=== PATIENT | male | born 1960 | race Caucasian/White ===

== ENCOUNTER 2018-06-24 03:32 | Emergency (ER) | payer OTHER ==
--- NOTE | 2018-06-24 04:12 | EDM.PDOC ---
ED HPI GENERAL MEDICAL PROBLEM - General Chief Complaint: Cardiovascular Problem Stated Complaint: CHEST DISCOMFORT / PASSED OUT Time Seen by Provider: 06/24/18 03:55 Source of Information: Reports: Patient, Family History Limitations: Reports: No Limitations - History of Present Illness INITIAL COMMENTS - FREE TEXT/NARRATIVE: 57-year-old male who developed burning in his chest, substernal, short of breath and dizziness. He got up from bed and passed out. He still feels nauseous and continues to have burning in his chest. He has a history of an [place] 10 years ago. Yesterday he was started on a weight loss medication. He is a nonsmoker. The pain does not radiate. He took a full dose aspirin at home. No recent illness, fever or chills or cough. No history of abdominal surgeries. Onset: Sudden Duration: Hour(s): (1 hour ago) Location: Reports: Chest Severity: Moderate Improves with: Reports: None Worsens with: Reports: None Context: Reports: Other (Pain started while at rest) Associated Symptoms: Reports: Chest Pain, Nausea/Vomiting, Shortness of Breath - Related Data Allergies Allergy/AdvReac Type Severity Reaction Status Date / Time No Known Allergies Allergy Verified 06/24/18 03:36 Home Meds: Home Meds Citalopram [Citalopram HBr] 20 mg PO DAILY 06/24/18 [History] Dapagliflozin Propanediol [Farxiga] 5 mg PO DAILY 06/24/18 [History] Metoprolol Succinate [Kapspargo Sprinkle] 50 mg PO DAILY 06/24/18 [History] Pramipexole [Mirapex] 1 mg PO DAILY 06/24/18 [History] Rosuvastatin Calcium 20 mg PO DAILY 06/24/18 [History] glipiZIDE [Glucotrol XL] 5 mg PO DAILY 06/24/18 [History] metFORMIN HCl [Metformin HCl] 1,000 mg PO DAILY 06/24/18 [History] Past Medical History Cardiovascular History: Reports: High Cholesterol, Hypertension, Stents Respiratory History: Reports: Sleep Apnea Genitourinary History: Reports: Renal Calculus Endocrine/Metabolic History: Reports: Diabetes, Type II - Past Surgical History Cardiovascular Surgical History: Reports: Coronary Artery Stent Social & Family History - Tobacco Use Smoking Status *Q: Never Smoker - Caffeine Use Caffeine Use: Reports: Coffee - Recreational Drug Use Recreational Drug Use: No ED ROS GENERAL - Review of Systems Review Of Systems: See Below Constitutional: Reports: Malaise. Denies: Fever, Chills HEENT: Reports: No Symptoms Respiratory: Reports: Shortness of Breath. Denies: Pleuritic Chest Pain, Cough Cardiovascular: Reports: Chest Pain. Denies: Palpitations GI/Abdominal: Reports: Abdominal Pain (In the epigastric area and substernal area only), Nausea. Denies: Vomiting Skin: Reports: Diaphoresis Neurological: Reports: Dizziness. Denies: Confusion, Headache, Numbness, Trouble Speaking, Difficulty Walking, Change in Speech Psychiatric: Reports: No Symptoms ED EXAM, GENERAL - Physical Exam Exam: See Below Exam Limited By: No Limitations General Appearance: Alert, No Apparent Distress (Looks uncomfortable) Eye Exam: Bilateral Eye: Normal Inspection Head: Atraumatic Respiratory/Chest: No Respiratory Distress, Lungs Clear Cardiovascular: Regular Rate, Rhythm. No: Extra Beats GI/Abdominal: Soft, Tender (Some mild discomfort to palpation across the upper abdomen, no focal tenderness or guarding) Extremities: Normal Inspection. No: Pedal Edema Neurological: Alert, Oriented Psychiatric: Normal Affect, Normal Mood Skin Exam: Warm, Dry Course - Vital Signs Last Recorded V/S: Last Vital Signs Temp 95 F L 06/24/18 03:34 Pulse 72 06/24/18 03:34 Resp 16 06/24/18 04:26 BP 115/67 06/24/18 04:26 Pulse Ox 96 06/24/18 04:26 - Orders/Labs/Meds Orders: Active Orders 24 hr Category Date Time Status EKG Documentation Completion [RC] ASDIRECTED Care 06/24/18 04:06 Active EKG 12 Lead [EK] Routine Ther 06/24/18 04:06 Ordered Labs: Laboratory Tests 06/24/18 06/24/18 06/24/18 Range/Units 04:18 04:18 04:18 WBC 8.2 (4.5-11.0) K/uL RBC 4.67 (4.30-5.90) M/uL Hgb 14.8 (12.0-15.0) g/dL Hct 41.6 (40.0-54.0) % MCV 89 (80-98) fL MCH 32 H (27-31) pg MCHC 36 (32-36) % Plt Count 219 (150-400) K/uL Neut % (Auto) 59 (36-66) % Lymph % (Auto) 33 (24-44) % [place] % (Auto) 7 H (2-6) % Eos % (Auto) 2 (2-4) % Baso % (Auto) 0 (0-1) % D-Dimer, Quantitative < 100 (0.0-400.0) ng/mL Sodium 137 L (140-148) mmol/L Potassium 3.3 L (3.6-5.2) mmol/L Chloride 100 (100-108) mmol/L Carbon Dioxide 24 (21-32) mmol/L Anion Gap 16.3 H (5.0-14.0) mmol/L BUN 25 H (7-18) mg/dL Creatinine 1.2 (0.8-1.3) mg/dL Est Cr Clr Drug Dosing 69.02 mL/min Estimated GFR (MDRD) > 60 (>60) Glucose 185 H (74-106) mg/dL Calcium 8.8 (8.5-10.1) mg/dL Total Bilirubin 0.7 (0.2-1.0) mg/dL AST 45 H (15-37) U/L ALT 81 H (12-78) U/L Alkaline Phosphatase 51 (46-116) U/L Troponin I < 0.017 (0.000-0.056) ng/mL Total Protein 7.3 (6.4-8.2) g/dL Albumin 3.9 (3.4-5.0) g/dL Globulin 3.4 (2.3-3.5) g/dL Albumin/Globulin Ratio 1.1 L (1.2-2.2) Meds: Medications Discontinued Medications Generic Name Dose Route Start Last Admin Trade Name Freq PRN Reason Stop Dose Admin Al Hydroxide/Mg Hydroxide 30 ml 06/24/18 04:18 06/24/18 04:21 Mag-Al Plus PO 06/24/18 04:19 30 ml ONETIME ONE Administration Nitroglycerin 0.4 mg 06/24/18 04:10 06/24/18 04:17 Nitrostat SL 06/24/18 04:11 Not Given ONETIME ONE - Re-Assessments/Exams Free Text/Narrative Re-Assessment/Exam: 06/24/18 04:09 In EKG and 0.4 mg of sublingual nitroglycerin was ordered. 06/24/18 04:18 EKG was normal, and before the sublingual nitroglycerin was given the patient said it feels more like "heartburn". 30 mL of oral Maalox was given instead. 06/24/18 05:26 Patient continued to improve. Labs returned normal, d-dimer was negative, troponin 0, CBC and CMP unremarkable. I encouraged the patient to wait another 3 -4 hours for repeat troponin but he insisted on leaving. I do feel it would be negative. Departure - Departure Time of Disposition: 05:40 Disposition: Home, Self-Care 01 Condition: Good Clinical Impression: Vasovagal syncopes, Atypical chest pain Instructions: Vasovagal Syncope, Adult Referrals: PCP,None [Primary Care Provider] - Forms: ED Department Discharge Care Plan Goals: Rest this morning, continue your regular medications and increase activity as tolerated. Return anytime if chest pain recurs and is persistent with shortness of breath or dizziness. - My Orders Last 24 Hours: My Active Orders 06/24/18 04:06 EKG Documentation Completion [RC] ASDIRECTED EKG 12 Lead [EK] Routine - Assessment/Plan Last 24 Hours: My Active Orders 06/24/18 04:06 EKG Documentation Completion [RC] ASDIRECTED EKG 12 Lead [EK] Routine
[2018-06-24] MEDS: Nitroglycerin 0.4 MG Tab.SL SL ONE ×2 (04:16→04:17)
[2018-06-24 04:18] VITALS: BP 115/67
[2018-06-24] MEDS ORDERED: Aluminum Hydroxide/Magnesium Hydroxide/Simethicone Susp 30 ML Cup PO ONE (04:18)
== END 2018-06-24 05:40 | disposition home or self-care (01) ==
LOC: JP.ED 03:32
DX: R07.89 Other chest pain (principal); R55 Syncope and collapse; I10 Essential (primary) hypertension; E11.9 Type 2 diabetes mellitus without complications; E78.00 Pure hypercholesterolemia, unspecified; Z79.899 Other long term (current) drug therapy; Z79.84 Long term (current) use of oral hypoglycemic drugs
CPT/HCPCS: 36415; 80053; 84484; 85025; 85379; 93005; 99285; A9270

== ENCOUNTER 2021-03-10 17:56 | Emergency (ER) | payer OTHER ==
[2021-03-10] MEDS ORDERED: Sodium Chloride 0.9% 10 ML Syringe FLUSH PRN (18:10)
[2021-03-10] MEDS ORDERED: Nitroglycerin 0.4 MG Tab.SL SL PRN (18:10)
[2021-03-10] MEDS ORDERED: Aspirin 81 MG Tab.Chew PO ONE (18:10)
[2021-03-10] MEDS ORDERED: Morphine 4 MG/ML Syringe IVPUSH PRN (18:10)
--- NOTE | 2021-03-10 18:19 | EDM.PDOC ---
<OfficerFabian - Last Filed: 03/10/21 18:17> ED HPI GENERAL MEDICAL PROBLEM - General Chief Complaint: Chest Pain Stated Complaint: CHEST PAIN Time Seen by Provider: 03/10/21 18:09 Source of Information: Reports: Patient, Family, RN Notes Reviewed History Limitations: Reports: No Limitations - History of Present Illness INITIAL COMMENTS - FREE TEXT/NARRATIVE: 60-year-old gentleman presents emergency department with a complaint of chest pain, he describes more as a pressure he does get short of breath has been diaphoretic but no nausea he states it occurs more when he exerts himself. He does have a known history of coronary artery disease with stenting several years ago. He states the pressure began 2 days ago he notices it more when he exerts himself does get relief when he rests. Does have radiations up into his teeth Chest Pain Score (Numeric/FACES): 4 - Related Data Allergies Allergy/AdvReac Type Severity Reaction Status Date / Time No Known Allergies Allergy Verified 03/10/21 18:11 Home Meds: Home Meds Citalopram [Citalopram HBr] 20 mg PO DAILY 06/24/18 [History] Dapagliflozin Propanediol [Farxiga] 5 mg PO DAILY 06/24/18 [History] Metoprolol Succinate [Kapspargo Sprinkle] 50 mg PO DAILY 06/24/18 [History] Pramipexole [Mirapex] 1 mg PO DAILY 06/24/18 [History] Rosuvastatin Calcium 20 mg PO DAILY 06/24/18 [History] glipiZIDE [Glucotrol XL] 5 mg PO DAILY 06/24/18 [History] metFORMIN HCl [Metformin HCl] 1,000 mg PO DAILY 06/24/18 [History] Past Medical History Cardiovascular History: Reports: CAD, High Cholesterol, Hypertension, Stents Respiratory History: Reports: Sleep Apnea Genitourinary History: Reports: Renal Calculus Endocrine/Metabolic History: Reports: Diabetes, Type II - Past Surgical History Cardiovascular Surgical History: Reports: Coronary Artery Stent Social & Family History - Tobacco Use Tobacco Use Status *Q: Never Tobacco User - Caffeine Use Caffeine Use: Reports: Coffee ED ROS GENERAL - Review of Systems Review Of Systems: See Below Constitutional: Reports: Diaphoresis HEENT: Reports: No Symptoms Respiratory: Reports: Shortness of Breath Cardiovascular: Reports: Chest Pain GI/Abdominal: Reports: No Symptoms ED EXAM, GENERAL - Physical Exam Exam: See Below Exam Limited By: No Limitations General Appearance: Alert, WD/WN, No Apparent Distress Respiratory/Chest: No Respiratory Distress, Lungs Clear, Normal Breath Sounds, No Accessory Muscle Use, Chest Non-Tender Cardiovascular: Regular Rate, Rhythm, No Murmur GI/Abdominal: Soft, Non-Tender Departure - Departure Disposition: Against Medical Advice 07 Clinical Impression: Left against medical advice, Chest pain, Type 2 diabetes mellitus with hyperglycemia Instructions: Nonspecific Chest Pain, Adult, [id number], Hyperglycemia, [id number] Referrals: Mitul Mckinnon MD [Primary Care Provider] - Forms: ED Department Discharge, Refusal of Care AMA Additional Instructions: It is recommended that if you have return of chest pain or discomfort that you return to the emergency room or call 911 immediately As you have indicated you were going to contact your flight service specialist Dr. Jaziel Mckinnon tomorrow morning for further evaluation Sepsis Event Note (ED) - Evaluation Sepsis Screening Result: No Definite Risk <Claudette Santana - Last Filed: 03/10/21 19:41> #1 Interpretation EKG Date: 03/10/21 Time: 18:03 (Read by physician at 1810 there is no STEMI noted) Rhythm: NSR Rate (Beats/Min): 87 [place]: Normal P-Wave: Present (DE interval 171) QRS: Normal (QRS duration 90,) ST-T: Normal QT: Normal (QT/[id number]) EKG Interpretation Comments: Normal EKG Course - Vital Signs Text/Narrative:: 1855--as reviewed no acute findings are noted other than hyperglycemia initial troponin0.024 is negative patient did get positive relief of pain after 1 nitroglycerin he has also received aspirin 325. As with patient and at bedside today's ER findings to include recommendation for transfer to [place] in [place] for his flight service specialist Dr. Jaziel Mckinnon is located for continued chest pain evaluation that would include serial troponins EKGs as well as monitoring for any changes in his pain as well as cardiology consultation in the morning. 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 Then verbalized understanding of this patient still declines to be transferred to higher level of care it was discussed with him that at this time he would have to sign out AGAINST MEDICAL ADVICE he verbalized understanding agreement with this at this time is ready for discharge Last Recorded V/S: Last Vital Signs Temp 96.2 F L 03/10/21 18:10 Pulse 79 03/10/21 18:45 Resp 13 03/10/21 18:45 BP 106/64 03/10/21 18:45 Pulse Ox 96 03/10/21 18:45 - Orders/Labs/Meds Orders: Active Orders 24 hr Category Date Time Status Cardiac Monitoring [RC] .As Directed Care 03/10/21 18:10 Active EKG Documentation Completion [RC] ASDIRECTED Care 03/10/21 18:13 Active Peripheral IV Care [RC] . DIRECTED Care 03/10/21 18:13 Active Chest 1V Frontal [CR] Stat Exams 03/10/21 18:13 Ordered Morphine Med 03/10/21 18:10 Active 4 mg IVPUSH Q10M PRN Nitroglycerin [Nitrostat] Med 03/10/21 18:10 Active 0.4 mg SL Q5M PRN Sodium Chloride 0.9% [Saline Flush] Med 03/10/21 18:10 Active 10 ml FLUSH ASDIRECTED PRN Peripheral IV Insertion Adult [OM.PC] Stat Oth 03/10/21 18:10 Ordered Saline Lock Insert [OM.PC] Stat Oth 03/10/21 18:10 Ordered EKG 12 Lead [EK] Stat Ther 03/10/21 18:13 Ordered Medication Orders Morphine Sulfate (Morphine 4 Mg/Ml Syringe) 4 mg IVPUSH Q10M PRN PRN Reason: Chest Pain Stop: 03/11/21 18:10 Nitroglycerin (Nitroglycerin 0.4 Mg Tab.Sl) 0.4 mg SL Q5M PRN PRN Reason: Chest Pain Stop: 03/11/21 18:10 Last Admin: 03/10/21 18:18 Dose: 0.4 mg Documented by: HANNAH Sodium Chloride (Sodium Chloride 0.9% 10 Ml Syringe) 10 ml FLUSH ASDIRECTED PRN PRN Reason: Keep Vein Open Labs: Laboratory Tests 03/10/21 03/10/21 Range/Units 18:10 18:10 WBC 4.8 (4.5-11.0) K/uL RBC 5.06 (4.30-5.90) M/uL Hgb 15.7 H (12.0-15.0) g/dL Hct 45.8 (40.0-54.0) % MCV 91 (80-98) fL MCH 31 (27-31) pg MCHC 34 (32-36) % Plt Count 224 (150-400) K/uL Add Manual Diff Yes Neutrophils % (Manual) 66 (36-66) % Lymphocytes % (Manual) 29 (24-44) % Monocytes % (Manual) 5 (2-6) % Atypical Lymphocytes Occasional Sodium 136 L (140-148) mmol/L Potassium 4.0 (3.6-5.2) mmol/L Chloride 99 L (100-108) mmol/L Carbon Dioxide 24 (21-32) mmol/L Anion Gap 17.0 H (5.0-14.0) mmol/L BUN 23 H (7-18) mg/dL Creatinine 1.2 (0.8-1.3) mg/dL Est Cr Clr Drug Dosing 65.46 mL/min Estimated GFR (MDRD) > 60 (>60) Glucose 321 H (74-106) mg/dL Calcium 9.3 (8.5-10.1) mg/dL Troponin I 0.024 (0.000-0.056) ng/mL Labs have been reviewed noted for elevated [id number] opponent is negative0.024 Meds: Medications Generic Name Dose Route Start Last Admin Trade Name Freq PRN Reason Stop Dose Admin Morphine Sulfate 4 mg 03/10/21 18:10 Morphine 4 Mg/Ml Syringe IVPUSH 03/11/21 18:10 Q10M PRN Chest Pain Nitroglycerin 0.4 mg 03/10/21 18:10 03/10/21 18:18 Nitroglycerin 0.4 Mg Tab.Sl SL 03/11/21 18:10 0.4 mg Q5M PRN Administration Chest Pain Sodium Chloride 10 ml 03/10/21 18:10 Sodium Chloride 0.9% 10 Ml Syringe FLUSH ASDIRECTED PRN Keep Vein Open Discontinued Medications Generic Name Dose Route Start Last Admin Trade Name Freq PRN Reason Stop Dose Admin Aspirin 324 mg 03/10/21 18:10 03/10/21 18:17 Aspirin 81 Mg Tab.Chew PO 03/10/21 18:11 324 mg ONETIME ONE Administration Departure - Departure Time of Disposition: 19:36 Sepsis Event Note (ED) - Focused Exam Vital Signs: Vital Signs Temp Pulse Resp BP BP Pulse Ox 03/10/21 18:45 79 13 106/64 96 03/10/21 18:18 119/76 03/10/21 18:10 96.2 F L 90 13 119/76 97
[2021-03-10 18:46] VITALS: BP 106/64; PULSE 79
== END 2021-03-10 19:50 | disposition left against medical advice (07) ==
LOC: JP.ED 17:56
DX: R07.89 Other chest pain (principal); E11.65 Type 2 diabetes mellitus with hyperglycemia; I25.10 Atherosclerotic heart disease of native coronary artery without angina pectoris; I10 Essential (primary) hypertension; E78.00 Pure hypercholesterolemia, unspecified; Z95.5 Presence of coronary angioplasty implant and graft; Z79.899 Other long term (current) drug therapy; Z79.84 Long term (current) use of oral hypoglycemic drugs; Z53.8 Procedure and treatment not carried out for other reasons
CPT/HCPCS: 36415; 80048; 84484; 85025; 93005; 99285; A9270

== ENCOUNTER 2023-08-10 21:13 | Emergency (ER) | payer BC, OTHER ==
[2023-08-10 21:35] VITALS: BP 115/61; PULSE 71
[2023-08-10] MEDS ORDERED: Tetracaine HCl/PF 0.5% 4 ML Bottle EYERT ONE (21:51)
== END 2023-08-10 22:14 | disposition home or self-care (01) ==
LOC: JP.ED 21:13
DX: S05.01XA Injury of conjunctiva and corneal abrasion without foreign body, right eye, initial encounter (principal); I25.10 Atherosclerotic heart disease of native coronary artery without angina pectoris; I10 Essential (primary) hypertension; E78.00 Pure hypercholesterolemia, unspecified; E11.9 Type 2 diabetes mellitus without complications; Z79.84 Long term (current) use of oral hypoglycemic drugs; Z79.899 Other long term (current) drug therapy; W22.8XXA Striking against or struck by other objects, initial encounter
CPT/HCPCS: 99283